=== PATIENT | female | born 1960 | race Caucasian/White ===

== ENCOUNTER 2022-03-25 13:41 | Day surgery (SDC) | payer OTHER ==
[2022-03-25] MEDS ORDERED: Sodium Chloride 0.9(Preservative Free) 10 ML IJ ONE (13:42)
[2022-03-25] MEDS ORDERED: Depo-Medrol 40 MG/ML IM ONE (13:42)
[2022-03-25] MEDS ORDERED: DIPRIVAN 200 MG/20 ML IV ONE (15:49)
--- NOTE | 2022-03-25 16:38 | XRAY ---
Indication: Left L3-L5 transforaminal AZIZA. Intraoperative fluoroscopy provided for 25 seconds. 5 digital spot images submitted for interpretation demonstrates posterior needle tips projecting over the expected left L3 and L4 nerve roots. Small amount of contrast injected for needle tip placement. Correlate with intraoperative findings/report.
--- NOTE | 2022-03-25 16:55 | XRAY ---
25 seconds of fluoroscopy was used in surgery for a left L3-L5 transforaminal AZIZA.
[2022-03-25] MEDS ORDERED: Lactated Ringers 1,000 ML IV ONE (17:10)
== END 2022-03-25 16:19 | disposition home or self-care (01) ==
LOC: SDC-PAIN 13:41
PROVIDERS: ATTEND Psychiatry & Neurology Pain Medicine
DX: M54.16 Radiculopathy, lumbar region (principal); Z79.899 Other long term (current) drug therapy
CPT/HCPCS: 64483; 64484; 72100; 77003; J1030; J2704; Q9966

== ENCOUNTER 2022-06-24 12:24 | Emergency (ER) | payer OTHER ==
--- NOTE | 2022-06-24 12:47 | ERPHSYRPT ---
- History of Present Illness Time Seen by Provider: 06/24/22 12:40 Patient Subjective Stated Complaint: Pt states "I have a migraine, had it for 10 days." Triage Nursing Assessment: Pt presented alert and oriented X 3, skin pwd Pt ambulates with an upright steady gait, able to speak in clear full sentences. Pt slightly tachypneic, no apparent respiratory distress. Physician History: Patient is a 62-year-old female who presents with a complaint of a migraine headache. This headache has been present for a total of 10 days.'s been associated with light and sound sensitivity and nausea and vomiting. This patient has a history of migraines which usually occur twice per month and this headache is different in its severity and in its location mostly to the left side of the head. Timing/Duration: day(s) (10) Quality: throbbing Head Pain Location: parietal (Left) Severity of Pain-Max: severe Severity of Pain-Current: severe Recent Head Trauma: no recent headache/trauma Modifying Factors: Improves With: exposure to light, noise Associated Symptoms: nausea/vomiting, numbness in legs/feet, sensitive to light Previous symptoms: same symptoms as today Allergies/Adverse Reactions: No Known Drug Allergies Allergy (Verified 06/24/22 12:41) Home Medications: Amitriptyline HCl 25 mg [Amitriptyline 25 mg Tablet] 25 mg PO DAILY 06/24/22 [History] Celecoxib 200 mg PO DAILY 06/24/22 [History] Cyanocobalamin (Vitamin B-12) [Vitamin B-12] 5,000 mcg SL DAILY 06/24/22 [History] Ferrous Sulfate [Ferosul] 325 mg PO DAILY 06/24/22 [History] Ondansetron [Ondansetron Odt] 8 mg PO DAILY 06/24/22 [History] hydroCHLOROthiazide [Hydrochlorothiazide] 12.5 mg PO DAILY 06/24/22 [History] Hx Tetanus, Diphtheria Vaccination/Date Given: No Hx Influenza Vaccination/Date Given: No Hx Pneumococcal Vaccination/Date Given: No Immunizations Up to Date: Yes Travel Risk - International Travel Have you traveled outside of the country in past 3 weeks: No - Coronavirus Screening Are you exhibiting any of the following symptoms?: Yes Symptoms: Headaches/Body Aches/Fatigue Close contact with a COVID-19 positive Pt in past 14-21 Days: No - Vaccine Status Have you recieved a Covid-19 vaccination: No - Review of Systems Constitutional: No Fever, No Chills Eyes: Photophobia Ears, Nose, & Throat: No Symptoms Respiratory: No Cough, No Dyspnea Cardiac: No Chest Pain, No Edema, No Syncope Abdominal/Gastrointestinal: Nausea, Vomiting, No Abdominal Pain, No Diarrhea Genitourinary Symptoms: No Dysuria Musculoskeletal: No Back Pain, No Neck Pain Skin: No Rash Neurological: Headache, Parasthesia, No Dizziness, No Focal Weakness, No Sensory Changes Psychological: No Symptoms Endocrine: No Symptoms All Other Systems: Reviewed and Negative - Past Medical History Pertinent Past Medical History: Yes Other Medical History: bipolar. crohn;s. fibromyalgia. htn. hyperlipidemia - Past Surgical History Past Surgical History: Yes Other Surgical History: hysterectomy. mino - Social History Smoking Status: Former smoker Exposure to second hand smoke: Yes Drug Use: none Patient Lives Alone: No - Nursing Vital Signs Nursing Vital Signs: Initial Vital Signs Temperature 97.2 F 06/24/22 12:35 Pulse Rate 73 06/24/22 12:35 Respiratory Rate 22 06/24/22 12:35 Blood Pressure 159/86 06/24/22 12:35 O2 Sat by Pulse Oximetry 98 06/24/22 12:35 Pain Scale Pain Intensity 6 - Physical Exam General Appearance: moderate distress, other (Wearing sunglasses) Eye Exam: PERRL/EOMI Ears, Nose, Throat Exam: normal ENT inspection, moist mucous membranes Neck Exam: normal inspection, supple, full range of motion, No meningismus Respiratory Exam: normal breath sounds, lungs clear Cardiovascular Exam: regular rate/rhythm, normal heart sounds Gastrointestinal/Abdominal Exam: soft, No tenderness, No distention Back Exam: normal inspection, normal range of motion Mental Status Exam: alert, oriented x 3, cooperative talent recruiter Exam: normal speech, PERRL, No facial droop Coordination/Gait Exam: normal cerebellar function Motor/Sensory Exam: no motor deficit, no sensory deficit Skin Exam: normal color, warm, dry, No rash SpO2 Interpretation: normal SpO2: 98 O2 Delivery: Room Air - Course Nursing assessment & vital signs reviewed: Yes - CT Exams Head CT Interpretation: Negative Ordered Tests: Active Orders 24 hr Category Date Time Status HEAD WITHOUT CONTRAST [CT] Stat Exams 06/24/22 13:08 Completed CBC W DIFF Stat Lab 06/24/22 12:30 Results CMP Stat Lab 06/24/22 12:30 Completed Erythrocyte Sedimentation Rate Stat Lab 06/24/22 12:30 Results Lactic Acid Urgent Lab 06/24/22 12:45 Completed PROTIME WITH INR Stat Lab 06/24/22 12:30 Completed Medication Summary Discontinued Medications Generic Name Dose Route Start Last Admin Trade Name Joe PRN Reason Stop Dose Admin Diphenhydramine HCl 50 mg 06/24/22 12:33 06/24/22 13:21 Diphenhydramine Hcl 50 Mg/Ml Vial IV 06/24/22 12:34 50 mg STAT ONE Administration Diphenhydramine HCl Confirm 06/24/22 13:18 Diphenhydramine Hcl 50 Mg/Ml Vial Administered 06/24/22 13:19 Dose 50 mg .ROUTE .STK-MED ONE Fentanyl Citrate 75 mcg 06/24/22 12:33 06/24/22 13:21 Fentanyl Citrate 100 Mcg/2 Ml* Vial IV 06/24/22 12:34 75 mcg STAT ONE Administration Fentanyl Citrate Confirm 06/24/22 13:19 Fentanyl Citrate 100 Mcg/2 Ml* Vial Administered 06/24/22 13:20 Dose 100 mcg .ROUTE .STK-MED ONE Sodium Chloride 1,000 mls @ 999 mls/hr 06/24/22 12:33 06/24/22 13:20 Sodium Chloride 0.9% 1000 Ml IV 06/24/22 13:33 999 mls/hr .Q1H1M STA Administration Sodium Chloride Confirm 06/24/22 13:19 Sodium Chloride 0.9% 1000 Ml Administered 06/24/22 13:20 Dose 1,000 mls @ ud .ROUTE .STK-MED ONE Metoclopramide HCl 10 mg 06/24/22 12:33 06/24/22 13:21 Metoclopramide Hcl 10 Mg/2 Ml Vial IV 06/24/22 12:34 10 mg STAT ONE Administration Metoclopramide HCl Confirm 06/24/22 13:19 Metoclopramide Hcl 10 Mg/2 Ml Vial Administered 06/24/22 13:20 Dose 10 mg .ROUTE .STK-MED ONE Lab/Rad Data: Laboratory Result Diagrams 06/24/22 12:30 06/24/22 12:30 Laboratory Results 08/17/22 08/17/22 08/17/22 Range/Units 13:30 12:45 12:30 WBC (4.0-10.5) x10^3/uL RBC (4.1-5.4) x10^6/uL Hgb (12.0-16.0) g/dL Hct (35-47) % MCV (78-100) fL MCH (26-32) pg MCHC (32-36) g/dL RDW (11.5-14.0) % Plt Count (150-450) x10^3/uL MPV (7.5-11.0) fL Gran % (36.0-66.0) % Immature Gran % (Auto) (0.00-0.4) % Nucleat RBC Rel Count (0.00-0.1) % Eos # (Auto) (0-0.5) x10^3/uL Immature Gran # (Auto) (0.00-0.03) x10^3u/L Absolute Lymphs (auto) (1.0-4.6) x10^3/uL Absolute Monos (auto) (0.0-1.3) x10^3/uL Absolute Nucleated RBC (0.00-0.01) x10^3u/L Lymphocytes % (24.0-44.0) % Monocytes % (0.0-12.0) % Eosinophils % (0.00-5.0) % Basophils % (0.0-0.4) % Absolute Granulocytes (1.4-6.9) x10^3/uL Basophils # (0-0.4) x10^3/uL ESR PT 10.9 (9.4-12.5) SECONDS INR 1.03 (0.8-3.0) Sodium (137-145) mmol/L Potassium (3.5-5.1) mmol/L Chloride (98-107) mmol/L Carbon Dioxide (22-30) mmol/L Anion Gap (5-15) MEQ/L BUN (7-17) mg/dL Creatinine (0.52-1.04) mg/dL Estimated GFR ML/MIN Glucose (74-106) mg/dL Lactic Acid 1.9 (0.4-2.0) Calcium (8.4-10.2) mg/dL Total Bilirubin (0.2-1.3) mg/dL AST (14-36) U/L ALT (0-35) U/L Alkaline Phosphatase (38-126) U/L Serum Total Protein (6.3-8.2) g/dL Albumin (3.5-5.0) g/dL Influenza Type A Ag NEGATIVE (NEGATIVE) Influenza Type B Ag NEGATIVE (NEGATIVE) RSV (PCR) NEGATIVE (Negative) SARS-CoV-2 (PCR) NEGATIVE (NEGATIVE) 06/24/22 06/24/22 Range/Units 12:30 12:30 WBC 6.6 (4.0-10.5) x10^3/uL RBC 5.72 H (4.1-5.4) x10^6/uL Hgb 14.5 (12.0-16.0) g/dL Hct 46.3 (35-47) % MCV 80.9 (78-100) fL MCH 25.3 L (26-32) pg MCHC 31.3 L (32-36) g/dL RDW 15.0 H (11.5-14.0) % Plt Count 201 (150-450) x10^3/uL MPV 10.8 (7.5-11.0) fL Gran % 69.2 H (36.0-66.0) % Immature Gran % (Auto) 0.5 H (0.00-0.4) % Nucleat RBC Rel Count 0.0 (0.00-0.1) % Eos # (Auto) 0.19 (0-0.5) x10^3/uL Immature Gran # (Auto) 0.03 (0.00-0.03) x10^3u/L Absolute Lymphs (auto) 1.31 (1.0-4.6) x10^3/uL Absolute Monos (auto) 0.43 (0.0-1.3) x10^3/uL Absolute Nucleated RBC 0.00 (0.00-0.01) x10^3u/L Lymphocytes % 20.0 L (24.0-44.0) % Monocytes % 6.6 (0.0-12.0) % Eosinophils % 2.9 (0.00-5.0) % Basophils % 0.8 (0.0-0.4) % Absolute Granulocytes 4.55 (1.4-6.9) x10^3/uL Basophils # 0.05 (0-0.4) x10^3/uL ESR Pending PT (9.4-12.5) SECONDS INR (0.8-3.0) Sodium 140 (137-145) mmol/L Potassium 3.9 (3.5-5.1) mmol/L Chloride 102 (98-107) mmol/L Carbon Dioxide 28 (22-30) mmol/L Anion Gap 14.2 (5-15) MEQ/L BUN 15 (7-17) mg/dL Creatinine 0.73 (0.52-1.04) mg/dL Estimated GFR > 60.0 ML/MIN Glucose 120 H (74-106) mg/dL Lactic Acid (0.4-2.0) Calcium 9.2 (8.4-10.2) mg/dL Total Bilirubin 0.70 (0.2-1.3) mg/dL AST 23 (14-36) U/L ALT 19 (0-35) U/L Alkaline Phosphatase 89 (38-126) U/L Serum Total Protein 7.7 (6.3-8.2) g/dL Albumin 4.6 (3.5-5.0) g/dL Influenza Type A Ag (NEGATIVE) Influenza Type B Ag (NEGATIVE) RSV (PCR) (Negative) SARS-CoV-2 (PCR) (NEGATIVE) - Progress Progress: improved Air Movement: good Blood Culture(s) Obtained: No Antibiotics given: No - Departure Departure Disposition: Home Clinical Impression: Migraine headache Condition: Stable Critical Care Time: No Referrals: ILA DAVIS FNP [Primary Care Provider] - Follow up/PCP as directed Instructions: Headache, Adult (DC) Prescriptions: Metoclopramide HCl 10 mg [Reglan 10 MG] 10 mg PO Q6H 5 Days #20 tablet
[2022-06-24 12:51] LABS: Absolute Neutrophil Ct (ANC) 4.55 x10^3/uL (1.4-6.9); Basophil (Absolute #) 0.05 x10^3/uL (0-0.4); Eosinophil % 2.9 % (0.00-5.0); Eosinophil (Absolute #) 0.19 x10^3/uL (0-0.5); Hematocrit 46.3 % (35-47); Hemoglobin 14.5 g/dL (12.0-16.0); Lymphocyte (Absolute #) 1.31 x10^3/uL (1.0-4.6); Mean Cell Volume 80.9 fL (78-100); Mean Corpuscular Hemoglobin 25.3 pg (26-32); Mean Corpuscular Hgb Concent. 31.3 g/dL (32-36); Mean Platelet Volume 10.8 fL (7.5-11.0); Monocyte (Absolute #) 0.43 x10^3/uL (0.0-1.3); Monocytes % 6.6 % (0.0-12.0); Neutrophil % 69.2 % (36.0-66.0); Platelet Count 201 x10^3/uL (150-450); Red Blood Count 5.72 x10^6/uL (4.1-5.4); White Blood Count 6.6 x10^3/uL (4.0-10.5)
[2022-06-24 13:04] LABS: ALBUMIN 4.6 g/dL (3.5-5.0); ALKALINE PHOSPHATASE 89 U/L (38-126); ANION GAP 14.2 MEQ/L (5-15); BLOOD UREA NITROGEN 15 mg/dL (7-17); CHLORIDE 102 mmol/L (98-107); Calcium 9.2 mg/dL (8.4-10.2); Carbon Dioxide 28 mmol/L (22-30); Creatinine 1 0.73 mg/dL (0.52-1.04); EST GLOMERULAR FILTRATION RATE > 60.0 ML/MIN; Glucose 120 mg/dL (74-106); Potassium 3.9 mmol/L (3.5-5.1); SGOT/AST 23 U/L (14-36); SGPT/ALT 19 U/L (0-35); SODIUM 140 mmol/L (137-145); Total Protein 7.7 g/dL (6.3-8.2)
[2022-06-24 13:05] LABS: INR 1.03 (0.8-3.0); PROTIME 10.9 SECONDS (9.4-12.5)
[2022-06-24] MEDS ORDERED: BENADRYL 50 MG/ML ONE (13:18)
[2022-06-24] MEDS ORDERED: Reglan 10 MG/2 ML ONE (13:19)
[2022-06-24] MEDS ORDERED: Sodium Chloride 0.9% 1000 ML 1,000 ML ONE (13:19)
[2022-06-24] MEDS ORDERED: SUBLIMAZE 100 MCG/2 ML ONE (13:19)
--- NOTE | 2022-06-24 13:19 | XRAY ---
Indication: Headache 10 days. No known injury. Multiple contiguous axial images obtained through the head without contrast. Comparison: None Normal appearing brain parenchyma, ventricles, and bony calvarium for patient's age. Paranasal sinuses and mastoid air cells are clear. Impression: Normal CT head without contrast exam.
[2022-06-24] MEDS: Sodium Chloride 0.9% 1000 ML 1,000 ML IV STA (13:20)
[2022-06-24] MEDS: BENADRYL 50 MG/ML IV ONE (13:21)
[2022-06-24] MEDS: SUBLIMAZE 100 MCG/2 ML IV ONE (13:21)
[2022-06-24] MEDS: Reglan 10 MG/2 ML IV ONE (13:21)
[2022-06-24 14:05] VITALS: BP 142/88; PULSE 64
[2022-06-24 14:12] LABS: INFLUENZA A NEGATIVE (NEGATIVE); INFLUENZA B NEGATIVE (NEGATIVE); RESPIRATORY SYNCTIAL VIRUS NEGATIVE (Negative); SARS-CoV-2 Xpert Express NEGATIVE (NEGATIVE)
[2022-06-24 14:25] VITALS: O2SAT 98
[2022-06-24 16:51] LABS: Erythrocyte Sedimentation Rate 2 mm/hr (0-20)
== END 2022-06-24 14:31 | disposition home or self-care (01) ==
LOC: ED 12:24
DX: G43.909 Migraine, unspecified, not intractable, without status migrainosus (principal); H53.143 Visual discomfort, bilateral; R11.2 Nausea with vomiting, unspecified; I10 Essential (primary) hypertension; E78.5 Hyperlipidemia, unspecified; Z79.899 Other long term (current) drug therapy; Z28.310 Unvaccinated for COVID-19
CPT/HCPCS: 0241U; 36000; 36415; 70450; 80053; 83605; 85025; 85610; 85652; 96360; 96374; 96375; 99284; J1200; J3010

== ENCOUNTER 2022-09-23 12:17 | Day surgery (SDC) | payer OTHER ==
[2022-09-23] MEDS ORDERED: Sodium Chloride 0.9(Preservative Free) 10 ML IJ ONE (12:18)
[2022-09-23] MEDS ORDERED: Depo-Medrol 40 MG/ML IM ONE (12:18)
[2022-09-23] MEDS ORDERED: DIPRIVAN 200 MG/20 ML IV ONE ×2 (13:57→14:08)
[2022-09-23] MEDS ORDERED: Xylocaine-Mpf 2% 5 Ml Vial ONE (14:00)
[2022-09-23] MEDS ORDERED: Lactated Ringers 1,000 ML IV ONE (14:32)
--- NOTE | 2022-09-23 15:20 | XRAY ---
Indication: Left L3-L5 transforaminal AZIZA. Intraoperative fluoroscopy provided for 29 seconds. 3 digital spot images submitted for interpretation demonstrates posterior needle tips projecting over the expected left L3 and L4 nerve roots. Small amount of contrast injected for needle tip placement. Correlate with intraoperative findings/report.
--- NOTE | 2022-09-23 15:25 | XRAY ---
29 seconds fluoroscopy time in surgery for left L3-L5 transforaminal AZIZA.
== END 2022-09-23 14:35 | disposition home or self-care (01) ==
LOC: SDC-PAIN 12:17
PROVIDERS: ATTEND Psychiatry & Neurology Pain Medicine
DX: M54.16 Radiculopathy, lumbar region (principal); Z79.899 Other long term (current) drug therapy
CPT/HCPCS: 64483; 64484; 72100; 77003; J1030; J2704; Q9966

== ENCOUNTER 2023-02-03 11:28 | Day surgery (SDC) | payer OTHER ==
[2023-02-03] MEDS ORDERED: BUPIVACAINE 0.5% VIAL IJ ONE (11:29)
[2023-02-03] MEDS ORDERED: Depo-Medrol 40 MG/ML IM ONE (11:29)
[2023-02-03] MEDS ORDERED: DIPRIVAN 200 MG/20 ML IV ONE (13:22)
--- NOTE | 2023-02-03 13:55 | XRAY ---
Indication: Left SI joint injection. Intraoperative fluoroscopy provided for 12 seconds. 3 digital spot image submitted for interpretation demonstrates posterior needle tip projecting over the left SI joint. Correlate with intraoperative findings/report.
[2023-02-03] MEDS ORDERED: Lactated Ringers 1,000 ML IV ONE (14:49)
--- NOTE | 2023-02-03 15:27 | XRAY ---
12 seconds of fluoroscopy was used in surgery for a left sacroiliac joint injection.
== END 2023-02-03 14:00 | disposition home or self-care (01) ==
LOC: SDC-PAIN 11:28
PROVIDERS: ATTEND Psychiatry & Neurology Pain Medicine
DX: M46.1 Sacroiliitis, not elsewhere classified (principal); Z79.899 Other long term (current) drug therapy
CPT/HCPCS: 27096; 72170; 77002; J1030; J2704; G0260

== ENCOUNTER 2023-04-14 15:34 | Day surgery (SDC) | payer OTHER ==
[2023-04-14] MEDS ORDERED: BUPIVACAINE 0.5% VIAL IJ ONE (15:35)
[2023-04-14] MEDS ORDERED: LIDOCAINE HCL 1% 50 MG/5 ML VL PF IJ ONE (15:35)
[2023-04-14] MEDS ORDERED: Depo-Medrol 40 MG/ML IM ONE (15:35)
--- NOTE | 2023-04-14 19:22 | XRAY ---
Indication: Left hip injection. Intraoperative fluoroscopy provided for 36 seconds. Single digital spot image submitted for interpretation demonstrates needle tip projecting lateral to the left femur neck. Small amount of contrast injected for needle tip placement. Correlate with intraoperative findings/report.
--- NOTE | 2023-04-15 09:30 | XRAY ---
36 seconds of fluoroscopy was used in surgery for a left intra-articular hip injection.
== END 2023-04-14 16:35 | disposition home or self-care (01) ==
LOC: SDC-PAIN 15:34
PROVIDERS: ATTEND Psychiatry & Neurology Pain Medicine
DX: M16.12 Unilateral primary osteoarthritis, left hip (principal); Z79.899 Other long term (current) drug therapy
CPT/HCPCS: 20610; 73501; 77002; J1030; J2001; Q9966